=== PATIENT | female | born 1995 | race African-American/Black ===

== ENCOUNTER 2018-09-05 17:37 | Emergency (ER) | payer SELFPAY ==
--- NOTE | 2018-09-05 18:14 | RAD REPORT ---
EXAM DESCRIPTION: RAD - Chest Pa And Lat (2 Views) - 09/05/2018 6:07 pm CLINICAL HISTORY: CHEST PAIN Chest pain. COMPARISON: <Comparisons> FINDINGS: The lungs are clear. The heart is normal in size. No displaced fractures. IMPRESSION: No acute or concerning finding suspected.
--- NOTE | 2018-09-05 19:22 | EDPHYS ---
Physician Documentation [facility] Name: Cady Martino Age: 23 yrs Sex: Female : 1995 Arrival Date: 09/05/2018 Time: 17:39 Bed 27 Private MD: ED Physician Anderson Ohara HPI: 09/05 18:25 This 23 yrs old Black Female presents to ER via Ambulatory with complaints of Flu kb Symptoms. 18:25 The patient or guardian reports flu symptoms, low-grade fever, myalgias. Onset: The kb symptoms/episode began/occurred 5 day(s) ago. Severity of symptoms: At their worst the symptoms were moderate, in the emergency department the symptoms are unchanged. Modifying factors: The symptoms are alleviated by nothing, the symptoms are aggravated by nothing. Associated signs and symptoms: Pertinent positives: chest pain, sore throat, Pertinent negatives: diarrhea, ear ache, fever, nausea, rhinorrhea, vomiting. The patient has not experienced similar symptoms in the past. The patient has been recently seen by a physician: the ER physician, out of Town, with similar presenting complaints, and apparently given a diagnosis of flu, no diagnostics were done. 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 - Social history:: Smoking status: Patient/guardian denies using tobacco, Patient/guardian denies using alcohol. - Ebola Screening: : Patient negative for fever greater than or equal to 101.5 degrees Fahrenheit, and additional compatible Ebola Virus Disease symptoms Patient denies exposure to infectious person Patient denies travel to an Ebola-affected area in the 21 days before illness onset. ROS: 18:23 Neck: Negative for injury, pain, and swelling, Respiratory: Negative for shortness of kb breath, cough, wheezing, and pleuritic chest pain, Abdomen/GI: Negative for abdominal pain, nausea, vomiting, diarrhea, and constipation, Back: Negative for injury and pain, MS/Extremity: Negative for injury and deformity, Skin: Negative for injury, rash, and discoloration, Neuro: Negative for weakness, numbness, tingling, and seizure. +headache 18:23 Constitutional: Positive for body aches, fatigue, malaise, Negative for chills, fever, poor PO intake, weight loss. 18:23 ENT: Positive for sore throat. 18:23 Cardiovascular: Positive for chest pain, Negative for edema, orthopnea, palpitations, paroxysmal nocturnal dyspnea. Exam: 18:21 Constitutional: This is a well developed, well nourished patient who is awake, alert, kb and in no acute distress. Head/Face: Normocephalic, atraumatic. ENT: Nares patent. No nasal discharge, no septal abnormalities noted. Tympanic membranes are normal and external auditory canals are clear. Oropharynx with no redness, swelling, or masses, exudates, or evidence of obstruction, uvula midline. Mucous membranes moist. Neck: Trachea midline, no thyromegaly or masses palpated, and no cervical lymphadenopathy. Supple, full range of motion without nuchal rigidity, or vertebral point tenderness. No Meningismus. Chest/axilla: Normal chest wall appearance and motion. Nontender with no deformity. No lesions are appreciated. Cardiovascular: Regular rate and rhythm with a normal S1 and S2. No gallops, murmurs, or rubs. Normal PMI, no JVD. No pulse deficits. Respiratory: Lungs have equal breath sounds bilaterally, clear to auscultation and percussion. No rales, rhonchi or wheezes noted. No increased work of breathing, no retractions or nasal flaring. Abdomen/GI: Soft, non-tender, with normal bowel sounds. No distension or tympany. No guarding or rebound. No evidence of tenderness throughout. Skin: Warm, dry with normal turgor. Normal color with no rashes, no lesions, and no evidence of cellulitis. MS/ Extremity: Pulses equal, no cyanosis. Neurovascular intact. Full, normal range of motion. Neuro: Awake and alert, GCS 15, oriented to person, place, time, and situation. Cranial nerves II-XII grossly intact. Motor strength 5/5 in all extremities. Sensory grossly intact. Cerebellar exam normal. Normal gait. 18:21 ECG was reviewed by the Attending Physician. Vital Signs: 17:43 BP 141 / 91; Pulse 76; Resp 18; Temp 99.1(O); Pulse Ox 100% on R/A; Weight 68.04 kg; hj Height 5 ft. 5 in. (165.10 cm); Pain 10/10; 19:39 BP 136 / 74; Pulse 71; Resp 16; Pulse Ox 97% on R/A; la1 17:43 Body Mass Index 24.96 (68.04 kg, 165.10 cm) hj MDM: 17:47 Patient medically screened. [facility] 18:24 Data reviewed: vital signs, nurses notes, EKG. Data interpreted: Pulse oximetry: on kb room air is 100 %. Interpretation: normal. 19:18 Counseling: I had a detailed discussion with the patient and/or guardian regarding: the kb historical points, exam findings, and any diagnostic results supporting the discharge/admit diagnosis, lab results, radiology results, the need for outpatient follow up, a family practitioner, to return to the emergency department if symptoms worsen or persist or if there are any questions or concerns that arise at home. 09/05 17:53 Order name: Flu; Complete Time: 19:19 kb 09/05 17:53 Order name: Strep; Complete Time: 18:28 kb 09/05 17:53 Order name: Chest Pa And Lat (2 Views) XRAY; Complete Time: 18:19 kb 09/05 17:53 Order name: EKG; Complete Time: 17:53 kb 09/05 18:25 Order name: Throat Culture EDMS 09/05 17:53 Order name: EKG - Nurse/Tech; Complete Time: 18:18 kb EC:21 Rate is 70 beats/min. Rhythm is regular. [place] interval is prolonged at 230 msec. QRS kb interval is normal at 90 msec. QT interval is normal at 404 msec. Clinical impression: 1st degree heart block. Administered Medications: 19:37 Drug: Ibuprofen 600 mg Route: PO; la1 19:39 Follow up: Response: Medication administered at discharge. la1 Disposition: 09/06 07:25 Co-signature as Attending Physician, Anderson Ohara MD I agree with the assessment and [facility] plan of care. Disposition: 09/05/18 19:21 Discharged to Home. Impression: Acute upper respiratory infection, unspecified. - Condition is Stable. - Discharge Instructions: Upper Respiratory Infection, Adult, [id number], Viral Respiratory Infection, Fzob-Ny-Tsaj. - Work release form, Medication Reconciliation Form, Thank You Letter, Antibiotic Education, Prescription Opioid Use form. - Follow up: Emergency Department; When: As needed; Reason: Worsening of condition. Follow up: Private Physician; When: 2 - 3 days; Reason: Recheck today's complaints, Continuance of care, Re-evaluation by your physician. Signatures: Dispatcher [employer] EDOR AloLoganElba, CHUCKER-C CHUCKER-Anderson Willoughby MD MD cha Attema, Lee RN RN la1 Wilton Wilkinson RN RN hj Corrections: (The following items were deleted from the chart) 09/05 19:40 19:21 09/05/2018 19:21 Discharged to Home. Impression: Acute upper respiratory la1 infection, unspecified. Condition is Stable. Discharge Instructions: Upper Respiratory Infection, Adult, [id number]-[id number], Viral Respiratory Infection, Eeod-Vk-Phqh. Forms are Medication Reconciliation Form, Thank You Letter, Antibiotic Education, Prescription Opioid Use. Follow up: Emergency Department; When: As needed; Reason: Worsening of condition. Follow up: Private Physician; When: 2 - 3 days; Reason: Recheck today's complaints, Continuance of care, Re-evaluation by your physician. kb
--- NOTE | 2018-09-05 19:22 | ER ---
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 Transition of care: patient was not received from another setting of care. Onset of symptoms was September 05, 2018. Risk Assessment: Do you want to hurt yourself or someone else? Patient reports no desire to harm self or others. Initial Sepsis Screen: Does the patient meet any 2 criteria? No. Patient's initial sepsis screen is negative. Does the patient have a suspected source of infection? No. Patient's initial sepsis screen is negative. Care prior to arrival: None. 17:41 Method Of Arrival: Ambulatory 17:41 Acuity: OTIS 4 hj Triage Assessment: 17:42 General: Appears in no apparent distress. uncomfortable, Behavior is calm, cooperative, hj appropriate for age. Pain: Complains of pain in rib cage. 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 - Social history:: Smoking status: Patient/guardian denies using tobacco, Patient/guardian denies using alcohol. - Ebola Screening: : Patient negative for fever greater than or equal to 101.5 degrees Fahrenheit, and additional compatible Ebola Virus Disease symptoms Patient denies exposure to infectious person Patient denies travel to an Ebola-affected area in the 21 days before illness onset. Screenin:42 Abuse screen: Denies threats or abuse. Denies injuries from another. Nutritional hj screening: No deficits noted. Tuberculosis screening: No symptoms or risk factors identified. Fall Risk None identified. Assessment: 18:22 General: Appears in no apparent distress. la1 18:53 General: Appears in no apparent distress. Behavior is calm, cooperative. Neuro: Level la1 of Consciousness is awake, alert, obeys commands, Oriented to person, place, time, situation. Cardiovascular: Capillary refill < 3 seconds Patient's skin is warm and dry. Respiratory: Airway is patent Respiratory effort is even, unlabored, Respiratory pattern is regular, symmetrical. GI: No signs and/or symptoms were reported involving the gastrointestinal system. : No signs and/or symptoms were reported regarding the genitourinary system. Vital Signs: 17:43 BP 141 / 91; Pulse 76; Resp 18; Temp 99.1(O); Pulse Ox 100% on R/A; Weight 68.04 kg; hj Height 5 ft. 5 in. (165.10 cm); Pain 10/10; 19:39 BP 136 / 74; Pulse 71; Resp 16; Pulse Ox 97% on R/A; la1 17:43 Body Mass Index 24.96 (68.04 kg, 165.10 cm) ED Course: 17:39 Patient arrived in ED. as 17:42 Triage completed. 17:42 Elba Prajapati [facility]C [facility] kb 17:42 Anderson Ohara MD is Attending Physician. kb 17:42 Arm band placed on left wrist. hj 17:43 Patient has correct armband on for positive identification. Bed in low position. Call light in reach. Side rails up X 1. Adult w/ patient. 17:49 Sunil Gomez RN is Primary Nurse. la1 18:04 Chest Pa And Lat (2 Views) XRAY In Process Unspecified. EDMS 19:39 Patient did not have IV access during this emergency room visit. la1 19:39 No provider procedures requiring assistance completed. la1 Administered Medications: 19:37 Drug: Ibuprofen 600 mg Route: PO; la1 19:39 Follow up: Response: Medication administered at discharge. la1 Outcome: 19:21 Discharge ordered by . kb 19:39 Discharged to home ambulatory. la1 19:39 Condition: stable 19:39 Discharge instructions given to patient, Instructed on discharge instructions, follow up and referral plans. Demonstrated understanding of instructions, follow-up care. 19:40 Patient left the ED. la1 Signatures: Dispatcher [employer] EDID Elba Prajapati FNP-C FNP-Nilda Alvarez as Sunil Gomez RN RN laWilton Adams RN RN hj Corrections: (The following items were deleted from the chart) 17:45 17:43 Pulse 76bpm; Resp 18bpm; Pulse Ox 100% RA; Temp 99.1F Oral; 68.04 kg; Height 5 hj ft. 5 in.; BMI: 24.9; Pain 03/24; hj
[2018-09-05] MEDS ORDERED: IBUPROFEN 200 MG TAB PO ONE (19:45)
[2018-09-05] MEDS ORDERED: IBUPROFEN 400 MG TAB ONE (19:45)
--- NOTE | 2018-09-06 08:48 | EKG ---
Test Date: 2018-09-05 Test Time: 18:15:54 Design Checker: FOUZIAT MEASUREMENT RESULTS: Intervals: Rate: 70 DE: 230 QRSD: 90 QT: 404 QTc: 436 [place]: P: 74 DE: 230 QRS: 78 T: 38 INTERPRETIVE STATEMENTS: Sinus rhythm with sinus arrhythmia with 1st degree AV block Otherwise normal ECG No previous ECG available for comparison Electronically Signed On 09-06-18 08:47:46 CDT by Matias Carpenter
== END 2018-09-05 19:40 | disposition home or self-care (01) ==
LOC: ER 17:37
DX: J06.9 Acute upper respiratory infection, unspecified (principal)
CPT/HCPCS: 71046; 87070; 87081; 87804; 93005; 99283